=== PATIENT | female | born 2000 | race Two or more races ===

== ENCOUNTER 2019-01-27 12:51 | Day surgery (SDC) | payer MEDICAID ==
[~2019-01-27] VITALS: Ht 154.9 cm; Wt 86.4 kg
[2019-01-27 13:00] VITALS: BP 137/79
[2019-01-27] MEDS ORDERED: MIDAZolam 5mg/5ml vial ONE (13:01)
[2019-01-27] MEDS ORDERED: fentaNYL/PF 50MCG/1 ML 2ML syringe ONE (13:01)
[2019-01-27] MEDS ORDERED: LIDOcaine Viscous 15ml cup ONE (13:02)
[2019-01-27] MEDS ORDERED: NO HOME MEDS (13:11)
[2019-01-27 13:30] VITALS: BP 86/67
[2019-01-27 13:40] VITALS: BP 118/84
[2019-01-27 13:50] VITALS: BP 126/85
[2019-01-27 14:00] VITALS: BP 127/86
== END 2019-01-27 14:30 | disposition home or self-care (01) ==
LOC: GI LAB 12:51
PROVIDERS: ATTEND Internal Medicine Gastroenterology
DX: K20.9 Esophagitis, unspecified (principal); K29.50 Unspecified chronic gastritis without bleeding; K44.9 Diaphragmatic hernia without obstruction or gangrene
CPT/HCPCS: 43239; 99152; J2250; J3010; J7030; A4620